=== PATIENT | male | born 1945 | race Caucasian/White ===

== ENCOUNTER 2017-09-11 07:12 | Day surgery (SDC) | payer MEDICARE ==
[~2017-09-11] VITALS: Ht 175.3 cm; Wt 104.3 kg
[~2017-09-11 07:12] MED LIST: ASPI-1012 PO; ATOR40TA71 PO; CARV6.25 PO; DULO60CA63 PO; FINA5TAB41 PO; FURO-152 PO; MVIT PO; NITR0.4T SL; SACU1TAB7 PO; SODIUM CHLORIDE 0.9% 1000ML 1,000 ML IV ONE; TAMS0.4C32 PO; TRAZ300T2 PO
[2017-09-11 07:29] VITALS: BP 90/55
[2017-09-11] MEDS ORDERED: FENTANYL CITRATE PF 50 MCG/1 ML 2ML VIAL ONE (09:06)
[2017-09-11] MEDS ORDERED: PROPOFOL 10 MG/ML 20ML VIAL IV ONE (09:06)
[2017-09-11] MEDS ORDERED: EPHEDRINE SULFATE 50 MG/ML AMPULE ONE (09:14)
[2017-09-11 09:26] VITALS: BP 107/44
== END 2017-09-11 09:57 | disposition home or self-care (01) ==
LOC: DAH 07:12
PROVIDERS: ATTEND Internal Medicine Gastroenterology
DX: R19.5 Other fecal abnormalities (principal); K57.30 Diverticulosis of large intestine without perforation or abscess without bleeding; I25.10 Atherosclerotic heart disease of native coronary artery without angina pectoris; I10 Essential (primary) hypertension; N40.0 Benign prostatic hyperplasia without lower urinary tract symptoms; E78.5 Hyperlipidemia, unspecified; Z79.82 Long term (current) use of aspirin; Z95.810 Presence of automatic (implantable) cardiac defibrillator; Z95.5 Presence of coronary angioplasty implant and graft; Z98.890 Other specified postprocedural states; Z98.84 Bariatric surgery status
CPT/HCPCS: 45378; 93005; A4606; J2704; J3010; J3490; J7030

== ENCOUNTER 2017-10-02 06:59 | Day surgery (SDC) | payer MEDICARE ==
[~2017-10-02] VITALS: Ht 180.3 cm; Wt 104.7 kg
[2017-10-02 07:05] VITALS: BP 99/61
[2017-10-02] MEDS ORDERED: PROPOFOL 10 MG/ML 20ML VIAL IV ONE (08:27)
[2017-10-02] MEDS ORDERED: PHENYLEPHRINE HCL 10 MG/ML 1ML VIAL IV ONE (08:34)
[2017-10-02 08:47] VITALS: BP 77/48
== END 2017-10-02 09:27 ==
LOC: ENDO 06:59 → DAH 06:59 → ENDO 09:27
PROVIDERS: ATTEND Internal Medicine Gastroenterology
DX: Z12.11 Encounter for screening for malignant neoplasm of colon (principal); K57.30 Diverticulosis of large intestine without perforation or abscess without bleeding; K56.2 Volvulus; Z68.42 Body mass index [BMI] 45.0-49.9, adult; I25.10 Atherosclerotic heart disease of native coronary artery without angina pectoris; I10 Essential (primary) hypertension; Z95.5 Presence of coronary angioplasty implant and graft; E78.5 Hyperlipidemia, unspecified; N40.0 Benign prostatic hyperplasia without lower urinary tract symptoms; Z79.899 Other long term (current) drug therapy; Z79.2 Long term (current) use of antibiotics; Z79.82 Long term (current) use of aspirin; Z95.1 Presence of aortocoronary bypass graft; Z98.890 Other specified postprocedural states
CPT/HCPCS: 93005; A4606; G0121; J2370; J2704; J7030

== ENCOUNTER → 2017-11-05 | Outpatient (CLI) | payer MEDICARE ==
[~2017-11-05] MED LIST changes: -SODIUM CHLORIDE 0.9% 1000ML 1,000 ML IV ONE
== END | disposition home or self-care (01) ==
LOC: SHCH 14:36
PROVIDERS: ATTEND Internal Medicine Cardiovascular Disease
DX: I08.1 Rheumatic disorders of both mitral and tricuspid valves (principal); I25.5 Ischemic cardiomyopathy; Z95.1 Presence of aortocoronary bypass graft
CPT/HCPCS: 93306

== ENCOUNTER → 2019-09-29 | Outpatient (CLI) | payer MEDICARE ==
[~2019-09-29] MED LIST changes: +CEPH250 PO; -DULO60CA63 PO; +DULO60CA64 PO
[2019-09-29 14:22] LABS: CREATININE 1.6 mg/dL (0.5-1.5)
== END | disposition home or self-care (01) ==
LOC: LAB 13:30
PROVIDERS: ATTEND Internal Medicine
DX: M54.2 Cervicalgia (principal)
CPT/HCPCS: 36415; 82565; 84520

== ENCOUNTER → 2019-10-14 | Outpatient (CLI) | payer MEDICARE | END | disposition home or self-care (01) | LOC: RAH 02:00 | PROVIDERS: ATTEND Internal Medicine | DX: M47.812 Spondylosis without myelopathy or radiculopathy, cervical region (principal); M48.02 Spinal stenosis, cervical region; M25.78 Osteophyte, vertebrae | CPT/HCPCS: 72125 ==

== ENCOUNTER → 2020-06-27 | Outpatient (CLI) | payer MEDICARE ==
[~2020-06-27] MED LIST changes: +REGADENOSON 0.4 MG/5 ML PF SYG IVP ONE; +REGADENOSON 0.4 MG/5 ML PF SYG IVP SCH
== END | disposition home or self-care (01) ==
LOC: SHCH 08:32
PROVIDERS: ATTEND Internal Medicine Cardiovascular Disease
DX: I21.09 ST elevation (STEMI) myocardial infarction involving other coronary artery of anterior wall (principal); I21.29 ST elevation (STEMI) myocardial infarction involving other sites; I21.19 ST elevation (STEMI) myocardial infarction involving other coronary artery of inferior wall; I25.10 Atherosclerotic heart disease of native coronary artery without angina pectoris
CPT/HCPCS: 78452; 93017; 96374; A9500 ×2; J2785

== ENCOUNTER → 2020-08-09 | Outpatient (CLI) | payer MEDICARE ==
[~2020-08-09] MED LIST changes: -REGADENOSON 0.4 MG/5 ML PF SYG IVP ONE; -REGADENOSON 0.4 MG/5 ML PF SYG IVP SCH
== END | disposition home or self-care (01) ==
LOC: OIH 13:19
PROVIDERS: ATTEND Internal Medicine
DX: S02.5XXA Fracture of tooth (traumatic), initial encounter for closed fracture (principal); Q75.4 Mandibulofacial dysostosis; M85.88 Other specified disorders of bone density and structure, other site; K05.00 Acute gingivitis, plaque induced; X58.XXXA Exposure to other specified factors, initial encounter; Y93.89 Activity, other specified; Y92.89 Other specified places as the place of occurrence of the external cause; Y99.8 Other external cause status
CPT/HCPCS: 70110

== ENCOUNTER → 2020-09-02 | Outpatient (CLI) | payer MEDICARE | END | disposition home or self-care (01) | LOC: RAH 13:08 | PROVIDERS: ATTEND Internal Medicine Cardiovascular Disease | DX: S09.90XA Unspecified injury of head, initial encounter (principal); R51.9 Headache, unspecified; X58.XXXA Exposure to other specified factors, initial encounter; Y93.89 Activity, other specified; Y92.89 Other specified places as the place of occurrence of the external cause; Y99.8 Other external cause status | CPT/HCPCS: 70450 ==

== ENCOUNTER → 2022-06-01 | Outpatient (CLI) | payer OTHER ==
[~2022-06-01] MED LIST changes: +REGADENOSON 0.4 MG/5 ML PF SYG IVP SCH
== END | disposition home or self-care (01) ==
LOC: SHCH 09:23
PROVIDERS: ATTEND Internal Medicine Cardiovascular Disease
DX: I48.91 Unspecified atrial fibrillation (principal); I48.92 Unspecified atrial flutter; I50.22 Chronic systolic (congestive) heart failure; I49.1 Atrial premature depolarization; I49.3 Ventricular premature depolarization; I51.7 Cardiomegaly; Z95.0 Presence of cardiac pacemaker
CPT/HCPCS: 78452; 96374; 93017; J2785; A9500 ×2

== ENCOUNTER → 2022-06-02 | Outpatient (CLI) | payer OTHER ==
[~2022-06-02] MED LIST changes: -REGADENOSON 0.4 MG/5 ML PF SYG IVP SCH
== END | disposition home or self-care (01) ==
LOC: SHCH 14:09
PROVIDERS: ATTEND Internal Medicine Cardiovascular Disease
DX: I50.22 Chronic systolic (congestive) heart failure (principal); I35.0 Nonrheumatic aortic (valve) stenosis
CPT/HCPCS: 93306

== ENCOUNTER → 2023-06-12 | Outpatient (CLI) | payer OTHER | END | disposition home or self-care (01) | LOC: SHCH 10:15 | PROVIDERS: ATTEND Internal Medicine Cardiovascular Disease | DX: I08.0 Rheumatic disorders of both mitral and aortic valves (principal); I42.9 Cardiomyopathy, unspecified; I50.20 Unspecified systolic (congestive) heart failure | CPT/HCPCS: 93306 ==

== ENCOUNTER → 2023-08-14 | Outpatient (CLI) | payer OTHER ==
[2023-08-14 16:17] LABS: CREATININE 1.6 mg/dL (0.5-1.5); POTASSIUM 4.8 mmol/L (3.5-5.1)
== END | disposition home or self-care (01) ==
LOC: LAB 13:45
PROVIDERS: ATTEND Internal Medicine Cardiovascular Disease
DX: E78.5 Hyperlipidemia, unspecified (principal)
CPT/HCPCS: 36415; 80048

== ENCOUNTER → 2023-08-26 | Outpatient (CLI) | payer OTHER ==
[2023-08-26 16:48] LABS: POTASSIUM 4.8 mmol/L (3.5-5.1)
== END | disposition home or self-care (01) ==
LOC: LAB 14:12
PROVIDERS: ATTEND Internal Medicine Cardiovascular Disease
DX: E78.5 Hyperlipidemia, unspecified (principal)
CPT/HCPCS: 36415; 80048

== ENCOUNTER → 2023-09-02 | Outpatient (CLI) | payer OTHER ==
[2023-09-02 13:23] LABS: CREATININE 1.9 mg/dL (0.5-1.5)
== END | disposition home or self-care (01) ==
LOC: LAB 10:59
PROVIDERS: ATTEND Internal Medicine Cardiovascular Disease
DX: E78.5 Hyperlipidemia, unspecified (principal)
CPT/HCPCS: 36415; 80048

== ENCOUNTER → 2023-09-24 | Outpatient (CLI) | payer OTHER ==
[2023-09-24 12:28] LABS: POTASSIUM 5.7 mmol/L (3.5-5.1)
== END | disposition home or self-care (01) ==
LOC: LAB 10:55
PROVIDERS: ATTEND Internal Medicine Cardiovascular Disease
DX: I10 Essential (primary) hypertension (principal)
CPT/HCPCS: 36415; 80048

== ENCOUNTER 2023-10-24 10:05 | Emergency (ER) | payer OTHER ==
[~2023-10-24] VITALS: Ht 180.3 cm; Wt 93.0 kg
[2023-10-24 11:01] LABS: BASOPHILS # (AUTO) 0.09 K/uL (0.00-0.20); BASOPHILS % (AUTO) 1.5 % (0.0-5.0); EOSINOPHILS # (AUTO) 0.51 K/uL (0.00-0.70); EOSINOPHILS % (AUTO) 8.7 % (0.0-8.0); HEMATOCRIT 33.6 % (42-54); IMMATURE GRANULOCYTE ABSOLUTE 0.03 K/uL (0-1); LYMPHOCYTES # (AUTO) 1.1 K/uL (1.0-4.8); LYMPHOCYTES % (AUTO) 19.4 % (21.0-51.0); MEAN CORPUSCULAR HEMOGLOBIN 29.1 pg (27.0-33.0); MEAN CORPUSCULAR HGB CONC 32.4 g/dL (32.0-36.0); MEAN CORPUSCULAR VOLUME 89.6 fL (79-99); MONOCYTES # (AUTO) 1.1 K/uL (0.1-1.0); NEUTROPHILS # (AUTO) 3.1 K/uL (1.8-7.7); NEUTROPHILS % (AUTO) 51.9 % (40.0-77.0); PLATELET COUNT (AUTO) 210 K/uL (130-400); RED BLOOD CELL COUNT(AUTO) 3.75 MIL/uL (4.50-6.20); RED CELL DISTRIBUTION WIDTH 15.5 % (11.0-15.5); WHITE BLOOD COUNT (AUTO) 5.9 K/uL (4.8-10.8)
[2023-10-24] MEDS: 0.9%NACL 1000ML 1,000 ML IV ONE (11:10)
[2023-10-24 11:15] LABS: CREATININE 1.6 mg/dL (0.5-1.3); POTASSIUM 4.8 mmol/L (3.5-5.1)
[2023-10-24 11:22] LABS: ALBUMIN 3.2 g/dL (3.5-5.0); BILIRUBIN,TOTAL 0.7 mg/dL (0.2-1.0); TOTAL PROTEIN, SERUM 6.6 g/dL (6.0-8.3)
[2023-10-24 11:46] LABS: INR 1.01 (0.85-1.15); PROTHROMBIN TIME 11.9 SEC (9.6-11.6)
[2023-10-24 11:48] LABS: PARTIAL THROMBOPLASTIN TIME 32.8 SEC (26.3-35.5)
[2023-10-24 14:15] LABS: APPEARANCE,URINE CLEAR (CLEAR); BILIRUBIN,URINE NEGATIVE (NEGATIVE); COLOR,URINE COLORLESS (YELLOW); GLUCOSE, URINE (UA) 500 mg/dL (NEGATIVE); KETONES,URINE NEGATIVE (NEGATIVE); LEUKOCYTE ESTERASE ,URINE NEGATIVE Leu/uL (NEGATIVE); NITRATE,URINE NEGATIVE (NEGATIVE); OCCULT BLOOD,URINE NEGATIVE (NEGATIVE); PROTEIN,URINE NEGATIVE (NEGATIVE); UROBILINOGEN,URINE 0.2 mg/dL (0.2-1.0)
[2023-10-24 14:21] LABS: ADD UA MICROSCOPIC YES
[2023-10-24 14:25] LABS: RBC,URINE 0-1 /HPF (0-1); WBC,URINE 0-1 /HPF (0-1)
[2023-10-24 15:13] VITALS: BP 104/50; PULSE 59; RESP 18; O2SAT 99
== END 2023-10-24 15:00 | disposition home or self-care (01) ==
LOC: EDH 10:05
DX: I95.9 Hypotension, unspecified (principal); I38 Endocarditis, valve unspecified; E78.00 Pure hypercholesterolemia, unspecified; I25.10 Atherosclerotic heart disease of native coronary artery without angina pectoris; Z79.82 Long term (current) use of aspirin; Z79.899 Other long term (current) drug therapy
CPT/HCPCS: 99285; 71045; 84484; 80053; 85025; 85610; 85730; 87040 ×2; 87088; 83605; 81001; 36415; 93005; J7030

== ENCOUNTER → 2024-01-15 | Outpatient (CLI) | payer OTHER ==
[2024-01-15 17:02] LABS: CREATININE 1.6 mg/dL (0.5-1.3); POTASSIUM 4.3 mmol/L (3.5-5.1)
== END | disposition home or self-care (01) ==
LOC: LAB 11:35
PROVIDERS: ATTEND Internal Medicine Cardiovascular Disease
DX: I10 Essential (primary) hypertension (principal)
CPT/HCPCS: 36415; 80048

== ENCOUNTER 2024-05-05 08:15 | Day surgery (SDC) | payer OTHER ==
[2024-05-05] VITALS (11 sets, daily range): BP systolic 93–118; BP diastolic 49–70; PULSE 71–81; RESP 12–20; TEMP 97.8–98.1
[~2024-05-05] VITALS: Ht 177.8 cm; Wt 83.9 kg
[~2024-05-05 08:15] MED LIST changes: +AEC81 PO; -ASPI-1012 PO; +ATOR20TA65 PO; -ATOR40TA71 PO; -CEPH250 PO; +DAPA10TA PO; -FURO-152 PO; -MVIT PO; -NITR0.4T SL; +RIVA2.5T PO; -SACU1TAB7 PO; +SPIR25TA6 PO; +TRAZ-187 PO; -TRAZ300T2 PO
[2024-05-05] MEDS ORDERED: LISI2.5T13 PO (08:56)
[2024-05-05] MEDS ORDERED: TIRZ12.5 SQ (08:56)
[2024-05-05] MEDS ORDERED: FERR-63 PO (08:58)
[2024-05-05] MEDS ORDERED: PANT40TA54 PO (08:59)
[2024-05-05] MEDS: 0.9%NACL 1000ML 1,000 ML IV ONE (09:05)
[2024-05-05] MEDS ORDERED: proPOFol 10 MG/ML 20ML VIAL IV ONE (11:25)
[2024-05-05] MEDS ORDERED: phenylEPHRINE HCL 10 MG/ML 1ML VIAL IV ONE (11:38)
== END 2024-05-05 13:00 | disposition home or self-care (01) ==
LOC: RAH 08:15 → DAH 08:15 → RAH 13:00
PROVIDERS: ATTEND Internal Medicine Gastroenterology
DX: D50.0 Iron deficiency anemia secondary to blood loss (chronic) (principal); K57.30 Diverticulosis of large intestine without perforation or abscess without bleeding; K59.04 Chronic idiopathic constipation; I10 Essential (primary) hypertension; I25.10 Atherosclerotic heart disease of native coronary artery without angina pectoris; E78.5 Hyperlipidemia, unspecified; I25.2 Old myocardial infarction; R13.10 Dysphagia, unspecified; K29.70 Gastritis, unspecified, without bleeding; K64.9 Unspecified hemorrhoids; R78.81 Bacteremia; K21.00 Gastro-esophageal reflux disease with esophagitis, without bleeding; Z95.0 Presence of cardiac pacemaker; Z98.84 Bariatric surgery status; Z88.1 Allergy status to other antibiotic agents; Z98.890 Other specified postprocedural states; Z79.02 Long term (current) use of antithrombotics/antiplatelets; Z79.82 Long term (current) use of aspirin; Z79.899 Other long term (current) drug therapy
CPT/HCPCS: 45378; J7030 ×2; J2704; J2371; A4615; A7002; J3490

== ENCOUNTER 2024-11-20 06:09 | Day surgery (SDC) | payer OTHER ==
[2024-11-19 13:18] LABS: BASOPHILS # (AUTO) 0.14 K/uL (0.00-0.20); BASOPHILS % (AUTO) 1.6 % (0.0-5.0); EOSINOPHILS # (AUTO) 0.37 K/uL (0.00-0.70); EOSINOPHILS % (AUTO) 4.3 % (0.0-8.0); HEMATOCRIT 43.4 % (42-54); IMMATURE GRANULOCYTE ABSOLUTE 0.02 K/uL (0-1); LYMPHOCYTES # (AUTO) 1.6 K/uL (1.0-4.8); LYMPHOCYTES % (AUTO) 18.3 % (21.0-51.0); MEAN CORPUSCULAR HEMOGLOBIN 28.6 pg (27.0-33.0); MEAN CORPUSCULAR HGB CONC 32.3 g/dL (32.0-36.0); MEAN CORPUSCULAR VOLUME 88.6 fL (79-99); MONOCYTES # (AUTO) 0.7 K/uL (0.1-1.0); MONOCYTES % (AUTO) 8.2 % (3.0-13.0); NEUTROPHILS # (AUTO) 5.9 K/uL (1.8-7.7); NEUTROPHILS % (AUTO) 67.4 % (40.0-77.0); PLATELET COUNT (AUTO) 205 K/uL (130-400); RED CELL DISTRIBUTION WIDTH 14.8 % (11.0-15.5); WHITE BLOOD COUNT (AUTO) 8.7 K/uL (4.8-10.8)
[2024-11-19 13:25] LABS: CREATININE 1.3 mg/dL (0.5-1.3); POTASSIUM 4.7 mmol/L (3.5-5.1)
[2024-11-19 13:48] VITALS: BP 98/59; PULSE 74; RESP 18; TEMP 98
[2024-11-19 14:25] LABS: INR 1.12 (0.85-1.15); PROTHROMBIN TIME 11.7 SEC (9.6-11.6)
[2024-11-19 14:27] LABS: PARTIAL THROMBOPLASTIN TIME 32.3 SEC (26.3-35.5)
--- NOTE | 2024-11-19 14:33 | NUR ---
REPORT REPORTED TO DR CHESTER PT TOOK XARELTO AND ASPIRIN THIS MORNING. OK TO PROCEED LONG PT STOPS TAKING BLOOD THINNERS. PT INFORMED AND VOICED UNDERSTANDING
[~2024-11-20] VITALS: Ht 177.8 cm; Wt 82.7 kg
[2024-11-20] VITALS (13 sets, daily range): BP systolic 116–131; BP diastolic 63–86; PULSE 65–86; RESP 16–19; TEMP 97.1–97.9
[~2024-11-20 06:09] MED LIST changes: +CHOL200074 PO; +FLUT16H NS; +NITR0.4T SL; +OXYB5TAB20 PO; -TRAZ-187 PO; +mvi PO
[2024-11-20] MEDS: ceFAZolin SODIUM 2 GM VIAL ONE (07:03)
[2024-11-20] MEDS: LACTATED RINGERS 1000ML 1,000 ML IV ONE (07:03)
[2024-11-20] MEDS ORDERED: FENTanyl CITRate PF 50 MCG/1 ML 2ML VIAL ONE ×2 (07:06→08:57)
[2024-11-20] MEDS ORDERED: proPOFol 10 MG/ML 20ML VIAL IV ONE (07:06)
[2024-11-20] MEDS ORDERED: MIDAZOLAM HCL 1 MG/ML 2ML VIAL ONE (07:06)
[2024-11-20] MEDS ORDERED: rocuRONium bROMide 10MG/1ML 5ML VL ONE (07:19)
[2024-11-20] MEDS ORDERED: ondanSETRON 4MG INJ ONE (07:20)
[2024-11-20] MEDS ORDERED: ePHEDrine SULFate 50 MG/ML AMPULE ONE (08:19)
[2024-11-20] MEDS: BUPIvacaine/PF 0.25% 10ML VIAL IJ ONE (08:32)
[2024-11-20] MEDS: LIDOCAINE 1%-EPI 1:100,000 20 ML VIAL ONE (08:32)
[2024-11-20] MEDS ORDERED: ACET-2079 PO (09:06)
--- NOTE | 2024-11-20 14:49 | OP ---
Operative Note: DATE OF PROCEDURE: 11/20/24 SURGEON: ELBA CHESTER MD NUCLEAR EQUIPMENT OPERATOR: Sharmila Schmidt ANESTHESIA: General ANESTHESIOLOGIST/ZONE SUPERVISOR FIREARMS: Leo Marcus PREOPERATIVE DIAGNOSIS: Right small, ring, middle and index finger trigger finger POSTOPERATIVE DIAGNOSIS: Right small, ring, middle and index finger trigger fingers PROCEDURE: Right small, ring, middle and index finger trigger finger release ESTIMATED BLOOD LOSS: 2 cc INDICATIONS: 79-year-old male with right small, ring, middle and index finger trigger finger. Patient has locking and clicking of the finger with range of motion that has become debilitating. After discussion of the risk, benefits, and alternatives, the patient voluntarily agreed to undergo the aforementioned procedure. DESCRIPTION OF PROCEDURE: Patient was properly identified in the preoperative holding area. Surgical site marking was verified and surgery consent reviewed. The patient was then taken to the operating room and placed in supine position on the OR table. After induction of general anesthesia, preoperative antibiotics were given, all bony prominences were well-padded, and a well padded tourniquet was applied but not inflated at this time. The right upper extremity was then prepped and draped in usual sterile fashion. Surgical time out was done verifying correct surgery, side, site, and location to be performed. We then began the procedure by exsanguinating the arm using an Esmarch and inflating a tourniquet to 250 mmHg. We made an approximately 1 cm long incision at the level of the A1 fabian on the volar aspect of the metacarpal head for the index finger. Here we came down sharply through the subcutaneous tissue and identified the A1 fabian. We then began to come through this a little bit at a time using a 15 blade with small amounts of pressure being applied. The fabian was then are not released. We then checked proximally and distally with a freer elevator to ensure we had full release. The tendons were then delivered into the wound using abdominal and the center retractor. There was no significant pathologic tissue noted on the tendons. We then repeated this process for the right middle, ring, and small fingers. We then thoroughly irrigated out the wounds with normal saline and injected the surrounding tissue with Marcaine. The wounds were then closed with 3-0 nylon interrupted simple suture pattern. Soft sterile dressing was applied with Xeroform, 4 x 4's, and Coban. The tourniquet was then deflated. The patient was then awakened from anesthesia and taken to the recovery in stable condition. ELBA CHESTER MD Nov 20, 2024 14:49
== END 2024-11-20 10:25 | disposition home or self-care (01) ==
LOC: DAH 06:09
PROVIDERS: ATTEND Student in an Organized Health Care Education/Training Program
DX: M65.341 Trigger finger, right ring finger (principal); M65.351 Trigger finger, right little finger; M65.331 Trigger finger, right middle finger; M65.321 Trigger finger, right index finger; M79.644 Pain in right finger(s); M72.0 Palmar fascial fibromatosis [Dupuytren]; I95.9 Hypotension, unspecified; I25.2 Old myocardial infarction; Z95.0 Presence of cardiac pacemaker; Z79.899 Other long term (current) drug therapy; Z79.82 Long term (current) use of aspirin; Z90.49 Acquired absence of other specified parts of digestive tract; Z95.1 Presence of aortocoronary bypass graft; Z98.890 Other specified postprocedural states; Z82.49 Family history of ischemic heart disease and other diseases of the circulatory system; Z88.8 Allergy status to other drugs, medicaments and biological substances
CPT/HCPCS: 80048; 85025; 85610; 85730; 36415; 26055 ×4; A4663 ×2; J7120; J3010 ×2; J3490 ×3; J2250; J2704; J2405; J0665; J0690; A6223; A4649; A4930; A5120; A4215 ×4; A4213 ×2; A4222 ×2; A4216 ×2; A4223 ×4; A4221 ×2

== ENCOUNTER 2025-05-03 07:18 | Day surgery (SDC) | payer OTHER ==
--- NOTE | 2025-04-30 10:27 | EKG ---
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
[2025-04-30 10:36] LABS: IMMATURE GRANULOCYTE ABSOLUTE 0.02 K/uL (0-1); NUCLEATED RED BLOOD CELLS 0.0 % (0.0-0.19); PLATELET COUNT (AUTO) 179 K/uL (130-400); RED BLOOD CELL COUNT(AUTO) 4.19 MIL/uL (4.50-6.20); RED CELL DISTRIBUTION WIDTH 13.2 % (11.0-15.5); WHITE BLOOD COUNT (AUTO) 8.5 K/uL (4.8-10.8)
[2025-04-30 10:47] LABS: INR 1.25 (0.85-1.15)
[2025-04-30 10:50] VITALS: BP 86/58; PULSE 74; RESP 13; TEMP 97.7
[2025-04-30 11:10] LABS: CREATININE 1.6 mg/dL (0.5-1.3); GLOMERULAR FILTR. RATE CALC 43.0 mL/min (>90); GLUCOSE,RANDOM 91.0 mg/dL (70-105); SODIUM SERUM 144.0 mmol/L (136-145); UREA NITROGEN, BLOOD 40.0 mg/dL (7-18)
[~2025-05-03] VITALS: Ht 177.8 cm; Wt 88.0 kg
[2025-05-03] VITALS (7 sets, daily range): BP systolic 89–92; BP diastolic 48–60; PULSE 79–90; RESP 14–18; TEMP 97.7–97.8
[~2025-05-03 07:18] MED LIST changes: -CARV6.25 PO; -CHOL200074 PO; -TAMS0.4C32 PO; +VITAMIN D2 PO
[2025-05-03] MEDS: 0.9%NACL 1000ML 1,000 ML IV SCH (07:36)
[2025-05-03] MEDS ORDERED: LIDOCAINE HCL 1% MDV 50ML VIAL ONE (10:53)
[2025-05-03] MEDS ORDERED: SODIUM BICARB 50MEQ 50ML VIAL 50 ML ONE (10:53)
[2025-05-03] MEDS ORDERED: SACU1TAB PO (11:11)
[2025-05-03] MEDS ORDERED: VANCOMYCIN 1G/250ML KIT 250 ML IV ONE (11:16)
[2025-05-03] MEDS ORDERED: MIDAZOLAM HCL 1 MG/ML 2ML VIAL ONE ×3 (11:33→13:45)
[2025-05-03] MEDS ORDERED: BACITRACIN 1 EACH PACKET TP ONE (14:10)
[2025-05-03] MEDS ORDERED: IOHEXOL-350 50ML VIAL IV ONE (14:27)
[2025-05-03] MEDS ORDERED: TRAM50TA4 PO (14:41)
--- NOTE | 2025-05-03 14:50 | NUR ---
PT ARRIVED WITH PRESSURE DRESSING TO LEFT CHEST SITE ASYMPTOMATIC
--- NOTE | 2025-05-03 16:50 | NUR ---
DR. KEENE AT BEDSIDE SPEAKING WITH PT AND SPOUSE. HE REMOVED PRESSURE DRESSING TO LEFT CHEST SCANT AMOUNT OF BLOOD NOTED TO DRESSING.
--- NOTE | 2025-05-03 17:00 | NUR ---
BOTH PT AND SPOUSE GIVEN VERBAL AND WRITTEN DISCHARGE INSTRUCTIONS. IV REMOVED SITE ASYMPTOMATIC. BOTH INSTRUCTED ON DRESSING CHANGES PRN AT HOME
== END 2025-05-03 17:20 | disposition home or self-care (01) ==
LOC: DAH 07:18
PROVIDERS: ATTEND Internal Medicine Cardiovascular Disease
DX: T82.198A Other mechanical complication of other cardiac electronic device, initial encounter (principal); Z45.02 Encounter for adjustment and management of automatic implantable cardiac defibrillator; I25.5 Ischemic cardiomyopathy; Y83.8 Other surgical procedures as the cause of abnormal reaction of the patient, or of later complication, without mention of misadventure at the time of the procedure; Y92.89 Other specified places as the place of occurrence of the external cause; I25.10 Atherosclerotic heart disease of native coronary artery without angina pectoris; J44.9 Chronic obstructive pulmonary disease, unspecified; E78.5 Hyperlipidemia, unspecified; F32.A Depression, unspecified; N40.0 Benign prostatic hyperplasia without lower urinary tract symptoms; Z79.01 Long term (current) use of anticoagulants; Z87.891 Personal history of nicotine dependence; Z88.1 Allergy status to other antibiotic agents; Z79.899 Other long term (current) drug therapy; Z98.890 Other specified postprocedural states
CPT/HCPCS: 80048; 85025; 85610; 85730; 36415; 93005; 99156; 99157 ×6; 33264; A4223 ×3; C1882; J1200; J3010 ×2; J0690 ×2; J0665; J2919; J3490 ×2; J2250 ×3; J3373; Q9967; A4215; A4222; A4221; A4663; A4216; A4606